=== PATIENT | female | born 1950 | race Caucasian/White ===

== ENCOUNTER 2018-03-08 06:56 | Day surgery (SDC) | payer MEDICARE, OTHER ==
[2018-03-08] MEDS ORDERED: PROPOFOL 40 ML (07:33)
== END 2018-03-08 10:06 | disposition home or self-care (01) ==
LOC: GIL 06:56
DX: R19.4 Change in bowel habit (principal); K29.60 Other gastritis without bleeding; K64.8 Other hemorrhoids; D12.6 Benign neoplasm of colon, unspecified; E11.9 Type 2 diabetes mellitus without complications; I10 Essential (primary) hypertension; E66.9 Obesity, unspecified; Z68.30 Body mass index [BMI] 30.0-30.9, adult
CPT/HCPCS: 43239; 82962; 88305; 88312